=== PATIENT | female | born 2005 | race Two or more races ===

== ENCOUNTER 2024-08-17 17:05 | Emergency (ER) | payer OTHER ==
[~2024-08-17] VITALS: Ht 152.4 cm; Wt 63.5 kg
[2024-08-17] MEDS ORDERED: AMOX500C2 PO (18:01)
[2024-08-17] MEDS ORDERED: IBUP-1955 PO (18:01)
[2024-08-17 18:12] VITALS: BP 122/76; O2SAT 100
== END 2024-08-17 18:15 | disposition home or self-care (01) ==
LOC: ER 17:05
DX: H66.92 Otitis media, unspecified, left ear (principal)
CPT/HCPCS: A4606; A4663